=== PATIENT | female | born 1955 | race African-American/Black ===

== ENCOUNTER 2019-06-03 11:51 | Outpatient (CLI) | payer BC ==
--- NOTE | 2019-06-03 12:33 | RAD ---
Left shoulder 2 views HISTORY: Left shoulder pain. Adhesive capsulitis. FINDINGS: Acromioclavicular and glenohumeral alignment are maintained. Mild osteophytosis. No acute f racture, dislocation, or aggressive osseous erosions. IMPRESSION: No acute osseous abnormalities are demonstrated. Mild osteoarthritic changes left dilcia [email or web address]
--- NOTE | 2019-06-03 12:39 | RAD ---
Cervical spine 5 views HISTORY: Neck pain with left shoulder radiculopathy. FINDINGS: Vertebral body heights and alignment are maintained. Moderate osteophytosis of the facets a nd vertebral bodies. No significant neural foraminal stenosis on the oblique images. Cervicothoracic junction is intact. No acute fracture or dislocation. IMPRESSION: Mild osteoarthritic changes cervical spine. No acute osseous abnormalities are demonstrat ed.
[2019-06-03 12:46] LABS: #Eosinphils 0.1 thou/uL (0.0-0.7); #Monocytes 0.3 thou/uL (0.11-0.59); #Neutrophils 4.1 thou/uL (1.40-6.50); %Basophils 0.7 % (0.0-1.0); %Eosinophils 1.4 % (0.0-10.0); %Lymphocytes 31.1 % (21.0-51.0); %Monocytes 4.9 % (0.0-10.0); %Neutrophils 61.9 % (42.0-75.0); Hemoglobin 10.5 g/dL (12.0-16.0); Mean Corpuscular HGB CONC 31.9 g/dL (32.0-36.0); Mean Corpuscular Hemoglobin 28.2 pg (27.0-31.0); Mean Corpuscular Volume 88.5 fL (78.0-98.0); Mean Platelet Volume 7.1 fL (7.4-10.4); Platelet Count 212 thou/uL (130-400); RBC Distribution Width 13.6 % (11.5-14.5); Red Blood Cell (RBC) Count 3.73 mill/uL (4.20-5.40); White Blood Cell (WBC) Count 6.5 thou/uL (4.8-10.8)
[2019-06-03 13:19] LABS: Anion Gap 14 mmol/L (10-20); BUN (Urea Nitrogen) 16 mg/dL (9.8-20.1); Calc. Creatinine Clearance 0 mL/min (70-130); Carbon Dioxide 29 mmol/L (23-31); Cardiac Risk 3.2 (Less than 4.5); Chloride 103 mmol/L (98-107); Cholesterol 147 mg/dl (< 200 Desired); Estimated GFR-MDRD Greater than 90; Glucose 92 mg/dL (80-115); HDL Cholesterol 46 mg/dL (>60 Neg Risk); LDL Cholesterol, Calculated 81 mg/dL; Potassium 3.6 mmol/L (3.5-5.1); Sodium 142 mmol/L (136-145); Triglycerides 102 mg/dL (Less than 150)
[2019-06-03 17:17] LABS: Hemoglobin A1c 6.3 % (4.0-6.0)
[2019-06-03 17:30] LABS: Creatinine, Urine 172.06 mg/dL (47-110); Microalbumin Urine 1.6 mg/dL (0.5-50.0); Microalbumin/Creat Ratio 9.3 mg/g (Less than 30)
== END 2019-06-03 11:52 | disposition home or self-care (01) ==
LOC: MADLABBHPM 11:51
PROVIDERS: ATTEND Family Medicine
DX: M75.02 Adhesive capsulitis of left shoulder (principal); E11.9 Type 2 diabetes mellitus without complications
CPT/HCPCS: 36415; 72050; 80048; 80061; 82043; 83036; 85025